=== PATIENT | female | born 1975 | race Two or more races ===

== ENCOUNTER 2024-10-20 09:44 | Emergency (ER) | payer MEDICAID, SELFPAY ==
[2024-10-20 09:56] VITALS: BP 109/68; PULSE 110; RESP 20; TEMP 36.7; O2SAT 99; BMI 20.5
--- NOTE | 2024-10-20 10:07 | XR_ITS ---
EXAMINATION: PA lateral chest 2 views TECHNIQUE: Upright PA lateral chest 2 views Exam date and time: October 20, 2024 1040 hours INDICATIONS: Shortness of breath coughing beginning 2 days ago. FINDINGS: Normal heart size Lungs are clear. The osseous structures are intact IMPRESSION: No active disease
[2024-10-20] MEDS: IBUPROFEN TAB 600 MG TABLET PO (10:16)
--- NOTE | 2024-10-20 10:18 | PD.EDRME ---
Rapid Medical Screening Exam RME Arrival date/time: 10/20/24 09:44 49-year-old female presents to the emergency department today complaints of generalized bodyaches, fever, cough, congestion and headache Chief Complaint: Headache Time Seen by Provider: 10/20/24 09:59 Vital signs: Vital Signs Temperature 98.1 F 10/20/24 09:56 Pulse Rate 110 H 10/20/24 09:56 Respiratory Rate 20 10/20/24 09:56 Blood Pressure 109/68 10/20/24 09:56 Pulse Oximetry (%) 99 10/20/24 09:56 Oxygen Delivery Method Room Air 10/20/24 09:56
[2024-10-20 10:35] LABS: Strep A Rapid Negative (Negative)
[2024-10-20 10:46] LABS: Collection Type, Urine Clean Catch
[2024-10-20 11:00] LABS: Bacteria,Urine 4+; Bilirubin,Urine Negative (Negative); Blood,Urine Trace (Negative); Color,Urine Yellow (Lt Yel-Yel); Glucose, Urine Negative (Negative); Granular Casts,Urine 1 /hpf (0-1); Ketones,Urine Negative (Negative); Leukocyte Esterase,Urine Positive (Negative); Nitrite,Urine Negative (Negative); Protein,Urine 2+ (Neg - Trace); RBC,Urine 10 /hpf (0-3); Specific Gravity,Urine 1.025 (1.001-1.035); Squamous Epithelial Cell,Urine 4 /hpf (0-5); WBC,Urine 759 /hpf (0-5)
[2024-10-20 11:07] LABS: Basophils % (Auto) 0 % (0-2.5); Eosinophils % (Auto) 0 % (0-10); Hematocrit 35.9 % (36.0-46.0); Hemoglobin 12.3 g/dL (12.0-16.0); Immature Granulocytes % (Auto) 1 % (0-0); Immature Granulocytes Auto 0.06 Thou/mm3 (0.00-0.00); Lymphocytes # (Auto) 2.3 Thou/mm3 (1.0-4.8); Lymphocytes % (Auto) 18 % (10-50); Mean Corpuscular HGB Conc 34.3 g/dl (31.0-37.0); Mean Corpuscular Hemoglobin 31.5 pg (25.0-35.0); Mean Corpuscular Volume 92 fL (80-100); Monocytes # (Auto) 1.3 Thou/mm3 (0.0-0.8); Monocytes % (Auto) 10 % (0-12); Neutrophils # (Auto) 9.1 Thou/mm3 (1.8-7.7); Neutrophils % (Auto) 71 % (37-80); Nucleated Red Blood Cell % 0 /100 WBC (0); Platelet Count 200 Thou/mm3 (140-440); RDW Standard Deviation 42.1 fL (36.4-46.3); Red Blood Count 3.91 Miln/mm3 (4.00-5.20); White Blood Count 12.8 Thou/mm3 (3.6-11.0)
[2024-10-20 11:12] LABS: Clarity,Urine Turbid (Clear/Hazy); Culture Indicated,Urine Yes
[2024-10-20 11:20] LABS: Alanine Aminotransferase 39 U/L (10-49); Albumin/Globulin Ratio 1.5 (1.2-2.2); Alkaline Phosphatase 662 U/L (46-116); Anion Gap 12 (7-16); Aspartate Amino Transferase 40 U/L (0-34); BUN/Creatinine Ratio 13 Ratio (12-20); Bilirubin,Total 0.4 mg/dL (0.3-1.2); Blood Urea Nitrogen 16 mg/dL (9-23); Calcium 9.8 mg/dL (8.3-10.6); Calcium (Corrected) 9.8 mg/dL (8.5-10.1); Carbon Dioxide 23.4 mMol/L (20.0-31.0); Chloride 96 mMol/L (98-107); Creatinine (Component) 1.2 mg/dL (0.6-1.3); Estimated Creatinine Clearance 38.3 mL/min (>60); Globulin 3.3 gm/dL (2.3-3.5); Glucose 224 mg/dL (74-106); Osmolality,Calculated 270 (275-295); Potassium 3.7 mMol/L (3.4-5.1); Sodium 131 mMol/L (136-145); Total Protein 8.3 gm/dL (5.7-8.2); eGFR 55 See Note
--- NOTE | 2024-10-20 12:58 | PD.EDADULT ---
ED General RME/HPI General Chief complaint: Headache Stated complaint: HEADACHE X SUNDAY; TOOK MEDICINE YESTERDAY Time Seen by Provider: 10/20/24 09:59 Arrival date/time: 10/20/24 09:44 CC: Headache, subjective fever, cough, and diarrhea HPI 3 to 4 days. Denies painful urination bloody urination chest pain shortness of breath or difficulty breathing. RME / HPI RME / HPI narrative: 10/20/24 09:44 49-year-old female presents to the emergency department today complaints of generalized bodyaches, fever, cough, congestion and headache Related Data Previous Rx's ?Medication ?Instructions ?Recorded nitrofurantoin 100 mg PO Q12H 7 days #14 caps 10/20/24 monohydrate/macrocrystals 100 mg capsule (Macrobid) Allergies Allergy/AdvReac Type Severity Reaction Status Date / Time No Known Allergies Allergy Verified 10/20/24 09:47 Review of Systems Review of Systems Narrative Review of Systems: GEN: + fever, no chills, no weight loss EYES: No discharge, no visual changes, no pain HEENT: No ear pain, no congestion, no sore throat PULM: No shortness of breath, +cough, no congestion CV: No chest pain, no dyspnea on exertion, no palpitations GI: No nausea, no vomiting, no diarrhea, no pain, no constipation : No frequency, no urgency, no dysuria MUSC/SKEL: No joint pain, no back pain SKIN: No rash PSYCH: No hallucinations, no depression HEME/LYMPH: No easy bleeding or bruising tendencies NEURO: No weakness, no headache Past Medical History Social History SMOKING STATUS: Never smoker ED Exam Narrative Physical exam: [General: Thin but not emaciated, not in any acute distress Head normocephalic HEENT: Within acceptable limits Neck is supple nontender Chest equal chest rise nontender to palpation Respiratory: Clear to auscultation no wheezes crackles or rubs CV: Rate rhythm is regular no murmurs rubs or clicks Abdomen is flat soft nontender no masses positive bowel sounds all 4 quadrants Back: No CVA tenderness no spinous process tenderness from cervical spine thoracic and lumbar spine Skin: Intact no petechiae rash induration ulceration or crepitus Extremities: Moving all extremity against resistance cap refill less than 2 seconds neurosensory intact Neuro: Awake alert oriented x3 Glascow coma 15 no focal deficits] Course Quality Measures none Orders Category Date Time Status Bedside COVID-19 Antigen Test NOW Care 10/20/24 10:08 Completed Bedside Influenza A&B Antigen Test NOW Care 10/20/24 10:08 Completed XR chest 2V Stat Exams 10/20/24 10:07 Completed CBC Stat Lab 10/20/24 10:50 Completed Comprehensive Metabolic Panel Stat Lab 10/20/24 10:50 Completed Strep A Rapid Stat Lab 10/20/24 10:00 Completed UA, C/S IF [Urinalysis, C/S if Indicated] Stat Lab 10/20/24 10:36 Completed Urine Culture Stat Lab 10/20/24 10:36 Received Ibuprofen Tab [Motrin Tab] Med 10/20/24 10:07 Discontinued 600 mg PO X1 ONE cefTRIAXone [Rocephin] 1,000 mg Med 10/20/24 12:58 Discontinued Lidocaine 1% 20 ml [Xylocaine 1% 20 ML] 2.1 ml IM X1 Vital Signs Vital signs: Vital Signs Temperature 98.1 F 10/20/24 09:56 Pulse Rate 110 H 10/20/24 09:56 Respiratory Rate 20 10/20/24 09:56 Blood Pressure 109/68 10/20/24 09:56 Pulse Oximetry (%) 99 10/20/24 09:56 Oxygen Delivery Method Room Air 10/20/24 09:[address] [facility] Patient data External records reviewed:: [facility] previous records Clinical information provided by:: patient Social determinants that could affect healthcare access:: none Patient has the following chronic illnesses:: None How is presenting disease/condition affected by chronic disease/condition?: uneffected by Evaluation data The following diagnostics were reviewed and interpreted by me:: lab results Lab and/or radiology exams considered but not ordered:: CBC shows leukocytosis cytosis no anemia thrombocytopenia CMP shows elevated blood glucose level no other significant electrolyte imbalances renal impairment transaminitis or T. bili elevation Influenza positive Urine is positive for UTI Interpretation Summary: UTI influenza Medications Medications considered but not ordered:: None Medication administrations:: Medication Administration History Discontinued Medications Ceftriaxone Sodium 1,000 mg/ (Lidocaine HCl 2.1 ml) 0 mg IM X1 ONE Stop: 10/20/24 12:59 Last Admin: 10/20/24 13:16 Dose: 2.1 mg Documented By: OA Ibuprofen (Ibuprofen Tab 600 Mg Tablet) 600 mg PO X1 ONE Stop: 10/20/24 10:08 Last Admin: 10/20/24 10:16 Dose: 600 mg Documented By: KM None Consultations Consultation(s) initiated? (list below): No Diagnosis Differential Diagnosis ED Complaint MDM: Influenza UTI pyelonephritis Most likely diagnosis given after review of the tests above:: Influenza UTI Admission Indicated Admission indicated?: not indicated Explain why admission is indicated or not indicated:: Stable for outpatient follow Admission Request Was there a request for admission?: No Disposition Plan Disposition Plan: Discharge Discharge Attestation Discharge Attestation: The patient and all family members were given an opportunity to ask questions and understood the discharge instructions. Discharge instructions specifically effects, indications for sooner follow up or return to the emergency department, and the expected course of current diagnosis. Patient condition: Stable Medical Decision Making Differential Diagnosis Differential Diagnosis: Influenza UTI pyelonephritis Lab Data 10/20/24 10:50 10/20/24 10:50 Labs: Lab Results 10/20/24 10/20/24 10/20/24 Range/Units 10:00 10:36 10:50 WBC 12.8 H (3.6-11.0) Thou/mm3 RBC 3.91 L (4.00-5.20) Miln/mm3 Hgb 12.3 (12.0-16.0) g/dL Hct 35.9 L (36.0-46.0) % MCV 92 (80-100) fL MCH 31.5 (25.0-35.0) pg MCHC 34.3 (31.0-37.0) g/dl RDW Std Deviation 42.1 (36.4-46.3) fL Plt Count 200 (140-440) Thou/mm3 Neut % (Auto) 71 (37-80) % Lymph % (Auto) 18 (10-50) % [place] % (Auto) 10 (0-12) % Eos % (Auto) 0 (0-10) % Baso % (Auto) 0 (0-2.5) % Neut # (Auto) 9.1 H (1.8-7.7) Thou/mm3 Lymph # (Auto) 2.3 (1.0-4.8) Thou/mm3 [place] # (Auto) 1.3 H (0.0-0.8) Thou/mm3 Eos # (Auto) 0.0 (0.0-0.5) Thou/mm3 Baso # (Auto) 0.0 (0.0-0.2) Thou/mm3 Immature Gran # (Auto) 0.06 H (0.00-0.00) Thou/mm3 Absolute Nucleated RBC 0.00 (0.00-0.00) Thou/mm3 Immature Gran % 1 H (0-0) % Nucleated RBC % 0 (0) /100 WBC Sodium 131 L (136-145) mMol/L Potassium 3.7 (3.4-5.1) mMol/L Chloride 96 L (98-107) mMol/L Carbon Dioxide 23.4 (20.0-31.0) mMol/L Anion Gap 12 (7-16) BUN 16 (9-23) mg/dL Creatinine 1.2 (0.6-1.3) mg/dL Estim Creat Clear Calc 38.3 L (>60) mL/min eGFR 55 L (60 - ) See Note BUN/Creatinine Ratio 13 (12-20) Ratio Glucose 224 H (74-106) mg/dL Calculated Osmolality 270 L (275-295) Calcium 9.8 (8.3-10.6) mg/dL Corrected Calcium 9.8 (8.5-10.1) mg/dL Total Bilirubin 0.4 (0.3-1.2) mg/dL AST 40 H (0-34) U/L ALT 39 (10-49) U/L Alkaline Phosphatase 662 H (46-116) U/L Total Protein 8.3 H (5.7-8.2) gm/dL Albumin 5.0 (3.5-5.0) gm/dL Globulin 3.3 (2.3-3.5) gm/dL Albumin/Globulin Ratio 1.5 (1.2-2.2) Ur Collection Type Clean Catch Urine Color Yellow (Lt Yel-Yel) Urine Clarity Turbid A (Clear/Hazy) Urine pH 6.0 (5.0-7.0) Ur Specific [place] 1.025 (1.001-1.035) Urine Protein 2+ A (Neg - Trace) Urine Glucose (UA) Negative (Negative) Urine Ketones Negative (Negative) Urine Blood Trace (Negative) Urine Nitrite Negative (Negative) Urine Bilirubin Negative (Negative) Urine Urobilinogen (Auto) 2.0 (0.0-1.0) mg/dL Ur Leukocyte Esterase Positive (Negative) Urine RBC 10 H (0-3) /hpf Urine WBC 759 H (0-5) /hpf Ur Squamous Epith Cells 4 (0-5) /hpf Urine Bacteria 4+ A (None) Granular Casts 1 (0-1) /hpf Ur Culture Indicated? Yes Group A Strep Rapid Negative (Negative) Discharge Plan Plan Patient Disposition: HOME (Self Care) Patient condition on transfer: Stable Prescriptions/Referrals Prescriptions/Med Rec: New nitrofurantoin monohyd/m-cryst [Macrobid] 100 mg capsule 100 mg PO Q12H 7 Days Qty: 14 0RF Rx Instructions: must administer with a meal/food Referrals: Paola Vieira FNP-C [Primary Care Provider] - In 1 week Problem List Clinical Impression: UTI (urinary tract infection), Influenza, Hyperglycemia due to diabetes mellitus Patient/Caregiver Discharge Instructions Education Materials: Urinary Tract Infections in Women, ED Influenza (Adult) Print Language: Estonian Stand Alone Forms: [employer] Award Info., Patient Portal Info Letter
[2024-10-20] MEDS: cefTRIAXone 1,000 MG, LIDOCAINE 1% 20 ML 2.1 ML IM (13:16)
== END 2024-10-20 13:57 | disposition home or self-care (01) ==
PROVIDERS: Nurse Practitioner Primary Care; Emergency Provider Emergency Medicine; PCP Nurse Practitioner Family
DX: J11.1 Influenza due to unidentified influenza virus with other respiratory manifestations (principal); N39.0 Urinary tract infection, site not specified; E11.65 Type 2 diabetes mellitus with hyperglycemia
CPT/HCPCS: 36415; 71046; 80053; 81001; 85025; 87077; 87086; 87186; 87400; 87651; 87811; 96372; 99283; J0696; J3490; A9270